=== PATIENT | female | born 1945 | race Caucasian/White ===

== ENCOUNTER → 2024-01-16 10:30 | Outpatient (REF) | payer MEDICARE, BC, SELFPAY | LOC: RCS 10:30 | PROVIDERS: ATTENDING PHYSICIAN Internal Medicine Cardiovascular Disease; FAMILY PHYSICIAN Physician Assistant | DX: J44.9 Chronic obstructive pulmonary disease, unspecified (principal); I25.10 Atherosclerotic heart disease of native coronary artery without angina pectoris; I25.5 Ischemic cardiomyopathy; I21.11 ST elevation (STEMI) myocardial infarction involving right coronary artery; R06.02 Shortness of breath; R42 Dizziness and giddiness | CPT/HCPCS: 93225; 93226 ==

== ENCOUNTER → 2024-07-12 08:01 | Outpatient (REF) | payer OTHER, SELFPAY | LOC: RCS 08:01 | PROVIDERS: ATTENDING PHYSICIAN Internal Medicine Cardiovascular Disease; FAMILY PHYSICIAN Physician Assistant | DX: I21.11 ST elevation (STEMI) myocardial infarction involving right coronary artery (principal); I25.10 Atherosclerotic heart disease of native coronary artery without angina pectoris; Z78.9 Other specified health status | CPT/HCPCS: 93306 ==

== ENCOUNTER → 2024-11-21 11:12 | Outpatient (REF) | payer OTHER, SELFPAY | LOC: RCS 11:12 | PROVIDERS: ATTENDING PHYSICIAN Student in an Organized Health Care Education/Training Program; FAMILY PHYSICIAN Physician Assistant | DX: I21.11 ST elevation (STEMI) myocardial infarction involving right coronary artery (principal) | CPT/HCPCS: 78452; 93017; A9500; J2785 ==